=== PATIENT | female | born 1955 | race Two or more races ===

== ENCOUNTER 2019-03-17 06:20 | Day surgery (SDC) | payer BC ==
[~2019-03-17] VITALS: Ht 162.6 cm; Wt 72.6 kg
[2019-03-17] VITALS (8 sets, daily range): BP systolic 97–137; BP diastolic 61–88
[2019-03-17] MEDS ORDERED: BP MED PO (06:53)
[2019-03-17] MEDS ORDERED: Atropine Inj 1mg/10ml Syr IV PRN (07:00)
[2019-03-17] MEDS ORDERED: Midazolam 2mg/2ml Inj IVP PRN (07:00)
[2019-03-17] MEDS ORDERED: fentaNYL 100 mcg/2 mL IV PRN (07:00)
[2019-03-17] MEDS ORDERED: DiphenhydrAMINE 50mg/ml Inj IVP PRN (07:00)
--- NOTE | 2019-03-17 07:00 | Anethesia Preoperative Eval ---
Anesthesia Pre-op PMH/ROS General Date of Evaluation: March 17, 2019 Time of Evaluation: 06:59 Anesthesiologist: jenny ASA Score: ASA 3 Mallampati Score Class I : Soft palate, uvula, fauces, pillars visible Class II: Soft palate, uvula, fauces visible Class III: Soft palate, base of uvula visible Class IV: Only hard plate visible Mallampati Classification: Class II Surgeon: brock Diagnosis: colon screening Surgical Procedure: colonoscopy Anesthesia History: none Social History: smoking - nonsmoker Family History: no anesthesia problems Allergies: Coded Allergies: No Known Allergies (Unverified , 03/17/19) Medications: see eMAR Patient NPO?: Yes Past Medical History Cardiovascular: Reports: HTN Pulmonary: Reports: other - bronchitis PSxH Narrative: Anesthesia Pre-op Phys. Exam Physician Exam Last Vital Signs Date Time Temp Pulse Resp B/P (MAP) Pulse Ox O2 Delivery O2 Flow Rate FiO2 03/17/19 06:51 Room Air 03/17/19 06:50 97.1 85 18 137/88 97 Constitutional: NAD Neurologic: CN 2-12 intact Cardiovascular: RRR Respiratory: CTA Gastrointestinal: S/NT/ND Airway Exam Mallampati Score: Class II MO: limited Neck: flexible TMD: 2fb ROM: limited Anesthesia Pre-op A/P Risk Assessment & Plan Assessment: asa3 Plan: mac Status Change Before Surgery: No Pre-Antibiotics Drug: Hallie Botello MD March 17, 2019 07:00
[2019-03-17] MEDS ORDERED: Atropine Sulfate 0.4mg/ml inj ONE (08:00)
[2019-03-17] MEDS ORDERED: Lidocaine 1% MPF 10mg/ml 5ml ONE (08:00)
[2019-03-17] MEDS ORDERED: Propofol 200mg/20ml IV ONE (08:00)
[2019-03-17] MEDS ORDERED: LR 1000ml ONE (08:00)
--- NOTE | 2019-03-17 08:22 | Short Stay Surgery H&P ---
History of Present Illness History of Present Illness Chief Complaint see attached H&P HPI Marlene Felix is a 63 year old female who was admitted on for Colon Screening Patient History Allergies: Coded Allergies: No Known Allergies (Unverified , 03/17/19) Medication History Scheduled [Bp Med], Unknown Dose PO DAILY, (Reported) Physical Exam Vital Signs Last Vital Signs Date Time Temp Pulse Resp B/P (MAP) Pulse Ox O2 Delivery O2 Flow Rate FiO2 03/17/19 06:51 Room Air 03/17/19 06:50 97.1 85 18 137/88 97 Plan Attestation Are the patient's medical conditions optimized for surgery? Anatoliy Price MD March 17, 2019 08:22
--- NOTE | 2019-03-17 08:22 | Pre-Procedure Note/Attestation ---
Pre-Procedure Note/Attestation Complete Prior to Procedure Planned Procedure: not applicable Procedure Narrative: colon Indications for Procedure Pre-Operative Diagnosis: screen Attestation I attest that I discussed the nature of the procedure; its benefits; risks and complications; and alternatives (and the risks and benefits of such alternatives ), prior to the procedure, with the patient (or the patient's legal community engagement representative). I attest that, if there was a reasonable possibility of needing a blood transfusion, the patient (or the patient's legal community engagement representative) was given the [facility] standardized written summary, pursuant to the Saud Lauren Blood Safety Act ([place] Health and Safety Code # 1645, as amended). I attest that I re-evaluated the patient just prior to the surgery and that there has been no change in the patient's H&P, except as documented below: Anatoliy Price MD March 17, 2019 08:22
--- NOTE | 2019-03-17 09:08 | Immediate Post-Op Evaluation ---
Immediate Post-Op Evalulation Immediate Post-Op Evalulation Procedure: colonoscopy w/bx Date of Evaluation: March 17, 2019 Time of Evaluation: 09:06 IV Fluids: 500ml lr Blood Products: none Estimated Blood Loss: neglitgible Blood Pressure Systolic: 111 Blood Pressure Diastolic: 72 Pulse Rate: 81 Respiratory Rate: 18 O2 Sat by Pulse Oximetry: 99 Pain Score (1-10): 0 Nausea: No Vomiting: No Complications none Patient Status: awake, reacts, patent Hydration Status: adequate Drug: Hallie Botello MD March 17, 2019 09:08
--- NOTE | 2019-03-17 09:09 | 48 Hour Post Anesthesia Eval ---
Post Anesthesia Evaluation Procedure: colonoscopy w/bx Date of Evaluation: March 17, 2019 Time of Evaluation: 09:08 Blood Pressure Systolic: 114 0: 80 Pulse Rate: 81 Respiratory Rate: 18 Temperature (Fahrenheit): 98.1 O2 Sat by Pulse Oximetry: 99 Airway: patent Nausea: No Vomiting: No Pain Intensity: 0 Hydration Status: adequate Cardiopulmonary Status: stable Mental Status/LOC: patient returned to baseline Post-Anesthesia Complications: none Follow-up care needed: N/A Hallie Barnes MD March 17, 2019 09:09
--- NOTE | 2019-03-17 10:13 | Endoscopy Procedure Note ---
Endoscopy Procedure Note General Indication for Procedure: screen Procedures Performed: colonoscopy Operative Findings/Diagnosis: distal sig dim polyp at 15, rare L sided tic Specimen: yes Pt Tolerated Procedure Well: Yes Estimated Blood Loss: none Anesthesia Anesthesiologist: Hemanth Harvey Anesthesia: MAC Medications Medication Given: see anesthesia record Inserted Devices Implant(s) used?: No Quality Quality of Bowel Preparation: Excellent Did scope reach the cecum?: Yes Was there any complications?: No GI Core Measures 50 yrs or older w/o bx or poly: Not Applicable 10yrs. F/U not recommended: Yes If not recommended, why?: 10 yrs. F/U needed: Yes 18 years or older w/prev. colo: No <3yrs. since last colonoscopy: No Med reason:<3 yrs.: System Reason:<3 yrs.: Last colonoscopy >= to 3yrs: Yes Anatoliy Price MD March 17, 2019 10:13
--- NOTE | 2019-03-17 10:14 | Brief Operative Note ---
Immediate Post Operative Note Operative Note Chief Complaint: screen Pre-op Diagnosis: screen Procedure: colon bx Post-op Diagnosis: Rare tic, dim polyp Surgeon: brock Anesthesiologist: louise scott Anesthesia: MAC Specimen: yes Complications: none Condition: stable Fluids: recorded Estimated Blood Loss: none Drains: none Implant(s) used?: No Anatoliy Price MD March 17, 2019 10:14
--- NOTE | 2019-03-17 18:30 | Procedure Note ---
DATE OF PROCEDURE: 03/17/2019 PROCEDURES: 1. Screening colonoscopy. 2. Colonoscopy with biopsy. SURGEON: Anatoliy Price M.D. ANESTHESIA: Please see the separate anesthesiologist notes for details. PRE-ENDOSCOPIC DIAGNOSIS: Need for screening colonoscopy. POST-ENDOSCOPIC DIAGNOSES: 1. Rare diverticulosis. 2. Diminutive polyp at 15 cm in the distal sigmoid colon status post biopsy removal. DESCRIPTION OF PROCEDURE: The procedure, its risks, indications, alternatives, and possible complications were explained to the patient and an informed consent was obtained. The patient was then sedated in the left lateral decubitus position and a rectal exam was done. The colonoscope was then introduced into the rectum and advanced to the cecum without difficulty. The cecum was identified by the appearance of the ileocecal valve. The colonoscope was then gradually withdrawn and the mucosa was examined carefully. Examination of the colon mucosa revealed rare left-sided diverticulosis. There was a diminutive polyp in the distal sigmoid colon at 15 cm, which was removed with biopsy forceps. Retroflexed view of the rectum was unremarkable. The colonoscope was removed and the patient was sent to recovery in good condition. COMPLICATIONS: None. RECOMMENDATIONS: 1. Follow up biopsy results. 2. High-fiber diet. 3. Outpatient followup. Anatoliy Price M.D. DR: CARLENE JOB#: [id number] CC: Anatoliy Price M.D.; Fax#: [phone]
== END 2019-03-17 10:10 | disposition home or self-care (01) ==
LOC: GAS 06:20
DX: Z12.11 Encounter for screening for malignant neoplasm of colon (principal); K57.90 Diverticulosis of intestine, part unspecified, without perforation or abscess without bleeding; K63.5 Polyp of colon; I10 Essential (primary) hypertension
CPT/HCPCS: 45380; J0461; J2704; 94003; 94150